=== PATIENT | female | born 1970 | race Caucasian/White ===

== ENCOUNTER → 2017-06-16 | Outpatient (CLI) | payer BC ==
[~2017-06-16] MED LIST: ASCO10004 PO; BUTA-177 PO; CHOL5000 PO; LEVE500T53 PO; MILK THISTLE PO; NAPR220C2 PO; PHEN100C PO
[2017-06-16 14:37] LABS: HEMATOCRIT 43.3 % (34.6-47.8); HEMOGLOBIN 14.5 g/dL (11.7-16.4); WHITE BLOOD COUNT 8.7 x10^3/uL (3.4-10)
[2017-06-16 14:48] LABS: BLOOD UREA NITROGEN 19 mg/dL (7-18)
[2017-06-16 14:54] LABS: ASPARTATE AMINO TRANSFERASE 19 U/L (15-37)
== END | disposition home or self-care (01) ==
LOC: STAR 13:31
PROVIDERS: ATTEND Obstetrics & Gynecology
DX: Z01.818 Encounter for other preprocedural examination (principal); N83.201 Unspecified ovarian cyst, right side
CPT/HCPCS: 36415; 80053; 81003; 84703; 85025

== ENCOUNTER → 2020-09-14 | Outpatient (CLI) | payer BC ==
[~2020-09-14] MED LIST changes: +ASCO100018 PO; -ASCO10004 PO; +CYAN50003 PO; +LEVE100020 PO; +METH5TAB6 PO; +MILK175C5 PO
[2020-09-14 11:16] LABS: ALBUMIN 3.8 g/dL (3.4-5.0); ANION GAP 3 mmol/L (5-15); BASOPHILS % (AUTO) 1 % (0-1); CALCIUM 8.6 mg/dL (8.5-10.1); CHLORIDE 109 mmol/L (98-107); EOSINOPHILS % (AUTO) 2 % (1-7); LYMPHOCYTES % (AUTO) 31 % (22-44); MEAN CORPUSCULAR HEMOGLOBIN 28.4 pg (27.0-34.8); MEAN CORPUSCULAR HGB CONC 31.8 g/dL (32.4-35.8); MEAN PLATELET VOLUME 7.1 fL (7.4-10.4); MONOCYTES % (AUTO) 7 % (2-9); NEUTROPHILS % (AUTO) 59 % (42-75); PLATELET COUNT 272 x10^3/uL (130-400); RED BLOOD COUNT 4.44 x10^6/uL (3.82-5.3); RED CELL DISTRIBUTION WIDTH 16.1 % (9.6-15.2)
[2020-09-14 11:19] LABS: ALANINE AMINOTRANSFERASE 20 U/L (12-78); ALKALINE PHOSPHATASE 115 U/L (45-117); BILIRUBIN,TOTAL 0.3 mg/dL (0.2-1.0); CREATININE 0.75 mg/dL (0.55-1.02); TOTAL PROTEIN 6.9 g/dL (6.4-8.2)
[2020-09-14 11:22] LABS: MICROSCOPIC AUTO
[2020-09-14 11:31] LABS: MD NO
== END | disposition home or self-care (01) ==
LOC: STAR 09:37
PROVIDERS: ATTEND Obstetrics & Gynecology Gynecology
DX: Z01.818 Encounter for other preprocedural examination (principal); R10.9 Unspecified abdominal pain; R10.2 Pelvic and perineal pain; D25.9 Leiomyoma of uterus, unspecified; R00.1 Bradycardia, unspecified
CPT/HCPCS: 36415; 71046; 80053; 81001; 85025; 93005